=== PATIENT | female | born 1965 | race Caucasian/White ===

== ENCOUNTER 2017-09-01 13:08 | Emergency (ER) | payer MEDICAID ==
[2017-09-01 13:10] VITALS: BP 138/66; PULSE 77; RESP 20; TEMP 98.6; O2SAT 98
[2017-09-01] MEDS ORDERED: LIPI40TA PO (13:33)
[2017-09-01] MEDS ORDERED: METF1000 PO (13:33)
[2017-09-01] MEDS ORDERED: LEVO150T7 PO (13:33)
[2017-09-01] MEDS ORDERED: AMOX875T PO (13:50)
--- NOTE | 2017-09-01 13:51 | PD ---
HPI Chief Complaint: ENT Complaint Time Seen by Provider: 13:43 Travel History International Travel<30 days: No Contact w/Intl Traveler<30days: No Traveled to known affect area: No History of Present Illness HPI 51-year-old female complains of left otalgia for about a day and a half. No fever. She reports similar episodes of otitis media felt the same. She reports a history of perforation of the tympanic membrane and reports she cannot take otic drops. No cough or shortness of breath. Timing constant. Severity moderate. PFSH Past Medical History High Cholesterol: Yes Diabetes: Yes Patient Takes Glucophage: No Thyroid Disease: Yes ?: Not Social History Alcohol Use: No Tobacco Use: No Substance Use: No Allergies-Medications (Allergen,Severity, Reaction): Coded Allergies: Sulfa (Sulfonamide Antibiotics) (Verified Allergy, Unknown, 09/01/17) ciprofloxacin (Verified Allergy, Unknown, 09/01/17) Reported Meds & Prescriptions Reported Meds & Active Scripts Active Reported Lipitor (Atorvastatin Calcium) Unknown Strength Tab Unknown Dose PO HS Metformin (Metformin HCl) 1,000 Mg Tab 1,000 Mg PO BIDPC Levothyroxine (Levothyroxine Sodium) 150 Mcg Tab 150 Mcg PO DAILY Review of Systems General / Constitutional: No: Fever HENT: Positive: Earache, No: Ear Discharge Physical Exam Narrative GENERAL: Well-nourished well-developed 51-year-old female pleasant ENT: Minimal erythema along the tympanic memory in the left side. No mastoid tenderness on either side. The right TM is normal. Posterior oropharynx is pink without tonsillar asymmetry or deviation soft palate or signs of pharyngitis/infection. SKIN: Warm and dry. HEAD: Normocephalic. EYES: No scleral icterus. No injection or drainage. Data Data Last Documented VS Vital Signs Date Time Temp Pulse Resp B/P (MAP) Pulse Ox O2 Delivery O2 Flow Rate FiO2 09/01/17 13:10 98.6 77 20 138/66 (90) 98 Room Air VS reviewed MDM Medical Decision Making Medical Screen Exam Complete: Yes Emergency Medical Condition: Yes Differential Diagnosis AOM, pharyngitis, influenza Narrative Course Presentation c/w AOM Amox script Diagnosis Primary Impression: AOM (acute otitis media) Qualified Codes: H65.195 - Other acute nonsuppurative otitis media, recurrent , left ear Med/Other Pt SpecificInfo: Prescription(s) given Scripts Amoxicillin (Amoxicillin) 875 Mg Tab 875 MG PO BID for Infection for 7 Days, #14 TAB 0 Refills Prov: Chepe Mccord MD 09/01/17 Disposition: 01 DISCHARGE HOME Condition: Stable Chepe Mccord MD Sep 01, 2017 13:51
== END 2017-09-01 14:14 | disposition home or self-care (01) ==
LOC: NEPD 13:08
DX: H65.195 Other acute nonsuppurative otitis media, recurrent, left ear (principal); E07.9 Disorder of thyroid, unspecified; E11.9 Type 2 diabetes mellitus without complications; E78.00 Pure hypercholesterolemia, unspecified; Z79.84 Long term (current) use of oral hypoglycemic drugs
CPT/HCPCS: 99283